=== PATIENT | female | born 1980 | race Caucasian/White ===

== ENCOUNTER 2016-08-01 19:42 | Emergency (ER) | payer SELFPAY ==
[~2016-08-01 19:42] MED LIST: IBUP600 PO; PREN0.01 PO
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
[2016-08-01 20:04] VITALS: BP 136/86; PULSE 108; RESP 20; TEMP 97.9; O2SAT 97
[2016-08-01] MEDS ORDERED: BIRTH CONTROL PO (20:08)
[2016-08-01] MEDS ORDERED: ACETAMINOPHEN 325 MG TAB ONE ×2 (22:16→22:18)
== END 2016-08-01 23:10 | disposition home or self-care (01) ==
LOC: PHED 19:42
DX: S40.022A Contusion of left upper arm, initial encounter (principal); S40.021A Contusion of right upper arm, initial encounter; Y09 Assault by unspecified means
CPT/HCPCS: 99281